=== PATIENT | female | born 1990 | race African-American/Black ===

== ENCOUNTER 2022-04-09 06:39 | Emergency (ER) | payer OTHER ==
[2022-04-09 06:57] VITALS: BP 118/84; PULSE 88; RESP 18; TEMP 97.7; BMI 34.3
[2022-04-09] MEDS ORDERED: ACETAMINOPHEN 500 MG TABLET (FP) PO ONE (07:46)
[2022-04-09] MEDS ORDERED: METHOCARBAMOL 500 MG TABLET PO ONE (07:46)
== END 2022-04-09 07:45 | disposition left against medical advice (07) ==
LOC: JERFT 06:39 → JER 06:39 → JERFT 07:45
DX: S09.90XA Unspecified injury of head, initial encounter (principal)
CPT/HCPCS: 99283-25; 99285-25